=== PATIENT | male | born 1940 | race Caucasian/White ===

== ENCOUNTER 2024-05-28 12:15 | Inpatient (IN) | payer OTHER ==
[~2024-05-28] VITALS: Ht 170.2 cm; Wt 87.5 kg
[2024-05-28] MEDS ORDERED: METOPROLOL TARTRATE INJ 5 MG/5 ML AMPUL ONE (12:49)
[2024-05-28] MEDS ORDERED: ONDANSETRON HCL/PF 4 MG/2 ML VIAL ONE ×2 (12:50→19:18)
[2024-05-28] MEDS: METOPROLOL TARTRATE INJ 5 MG/5 ML AMPUL IV ONE (13:02)
[2024-05-28] MEDS: ONDANSETRON HCL/PF - ER 4 MG/2 ML VIAL IV ONE (13:05)
[2024-05-28 13:13] LABS: BASOPHILS % (AUTO) 0.1 % (0.0-2.0); EOSINOPHILS % (AUTO) 0.1 % (0.0-6.0); HEMATOCRIT 53 % (39-51); HEMOGLOBIN 18.1 g/dL (13.5-17.5); LYMPHOCYTES # (AUTO) 1.6 K/uL (0.8-4.8); LYMPHOCYTES % (AUTO) 9.3 % (20.0-44.0); MEAN CORPUSCULAR HEMOGLOBIN 27 PG (26.0-33.0); MEAN CORPUSCULAR HGB CONC 34 g/dl (31.0-36.0); MEAN CORPUSCULAR VOLUME 81 fL (80-96); MONOCYTES # (AUTO) 1.6 K/uL (0.1-1.30); MONOCYTES % (AUTO) 9.6 % (2.0-12.0); NEUTROPHILS # (AUTO) 13.5 K/uL (1.8-8.9); NEUTROPHILS % (AUTO) 80.9 % (43.0-81.0); PLATELET COUNT (AUTO) 257 K/uL (150-450); RED BLOOD CELL COUNT(AUTO) 6.62 MIL/uL (4.5-6.0); RED CELL DISTRIBUTION WIDTH 13.9 % (11.5-15.0); WHITE BLOOD COUNT (AUTO) 16.7 K/uL (4.3-11.0)
[2024-05-28] MEDS: METOPROLOL SUCCINATE 50 MG TAB.SR.24H PO SCH (13:30)
[2024-05-28 13:35] LABS: CALCIUM, SERUM 9.6 mg/dL (8.5-10.1); CARBON DIOXIDE 24 mmol/L (21-32); CHLORIDE 97 mmol/L (98-107); CREATININE 1.3 mg/dL (0.6-1.3); GLUCOSE 153 mg/dL (74-106); NT-PRO BNP 1115 pg/mL (0-125); POTASSIUM 4.1 mmol/L (3.5-5.1); SODIUM SERUM 134 mmol/L (136-145); UREA NITROGEN, BLOOD 25 mg/dL (7-18)
[2024-05-28] MEDS ORDERED: METOCLOPRAMIDE HCL 10 MG/2 ML VIAL ONE (13:54)
[2024-05-28] MEDS: METOCLOPRAMIDE HCL 10 MG/2 ML VIAL IV ONE (14:03)
[2024-05-28] MEDS ORDERED: DILTIAZEM HCL 25 MG IV ONE (14:23)
[2024-05-28] MEDS: DILTIAZEM HCL 50 MG IV IV ONE (14:30)
[2024-05-28] MEDS: IV NS 0.9% 1,000 ML BAG IV ONE (14:30)
[2024-05-28] MEDS: DILTIAZEM HCL IV 125 MG in IV NS 0.9% 100 ML IV PRN (15:03)
[2024-05-28 15:07] LABS: ALBUMIN 3.6 g/dL (3.4-5.0); BILIRUBIN,DIRECT 0.2 mg/dL (0.0-0.2); TOTAL PROTEIN, SERUM 7.1 g/dL (6.4-8.2)
[2024-05-28] MEDS ORDERED: MAG HYDROX/AL HYDROX/SIMETH 30 ML UDC ONE (15:33)
[2024-05-28] MEDS: MAG HYDROX/AL HYDROX/SIMETH 30 ML UDC PO ONE (15:36)
[2024-05-28] MEDS: HYDROMORPHONE INJ 2 MG/ML DISP.SYRIN IV ONE ×2 (19:30→22:46)
[2024-05-28] MEDS: ONDANSETRON HCL/PF 4 MG/2 ML VIAL IV ONE (19:32)
[2024-05-28] MEDS: IV NS 0.9% 500 ML BAG IV ONE (19:33)
[2024-05-28] MEDS ORDERED: HYDROMORPHONE 1 MG/1 ML DISP.SYRIN ONE ×2 (19:40→22:43)
[2024-05-28] MEDS: PANTOPRAZOLE 80 MG in IV NS 0.9% 500 ML IV ONE (19:58)
[2024-05-28 20:13] LABS: BASOPHILS % (AUTO) 0.1 % (0.0-2.0); HEMATOCRIT 49 % (39-51); HEMOGLOBIN 17.1 g/dL (13.5-17.5); LYMPHOCYTES # (AUTO) 1.4 K/uL (0.8-4.8); MEAN CORPUSCULAR HEMOGLOBIN 28 PG (26.0-33.0); MEAN CORPUSCULAR HGB CONC 35 g/dl (31.0-36.0); MEAN CORPUSCULAR VOLUME 79 fL (80-96); MONOCYTES # (AUTO) 1.8 K/uL (0.1-1.30); MONOCYTES % (AUTO) 11.4 % (2.0-12.0); NEUTROPHILS # (AUTO) 12.8 K/uL (1.8-8.9); NEUTROPHILS % (AUTO) 79.5 % (43.0-81.0); PLATELET COUNT (AUTO) 270 K/uL (150-450); RED CELL DISTRIBUTION WIDTH 13.6 % (11.5-15.0); WHITE BLOOD COUNT (AUTO) 16.1 K/uL (4.3-11.0)
[2024-05-28] MEDS ORDERED: AMIODARONE 150 MG/3 ML VIAL IV ONE (21:16)
[2024-05-28] MEDS: AMIODARONE 150 MG/3 ML VIAL IV ONE (21:22)
[2024-05-28] MEDS ORDERED: PIPERACI/TAZO 3.375GM/D5W 50ML PB IV ONE (22:43)
[2024-05-28] MEDS: ONDANSETRON HCL/PF 4 MG/2 ML VIAL IVP ONE (22:46)
[2024-05-28] MEDS: PIPERACILLIN /TAZOBACTAM 3.375 G in IV D5W 50 ML IV ONE (22:46)
[2024-05-28] MEDS ORDERED: ONDANSETRON HCL/PF 4 MG/2 ML VIAL IVP PRN (23:00)
[2024-05-28] MEDS ORDERED: MAGNESIUM HYDROXIDE 30 ML UDC PO PRN (23:00)
[2024-05-28] MEDS ORDERED: Z GUARD REMEDY 4 OZ OINT TP PRN (23:00)
[2024-05-28] MEDS ORDERED: ACETAMINOPHEN 325 MG TABLET PO PRN (23:00)
[2024-05-28] MEDS ORDERED: MAG HYDROX/AL HYDROX/SIMETH 30 ML UDC PO PRN (23:00)
[2024-05-29] VITALS: BP 114/70; TEMP 98.4; O2SAT 89
[2024-05-29] MEDS: AMIODARONE 150 MG/3 ML VIAL IV ONE (01:22)
[2024-05-29] MEDS: AMIODARONE 450 MG in IV D5W 250 ML IV PRN (01:30)
[2024-05-29 04:00] VITALS: BP 121/70; TEMP 98; O2SAT 89
[2024-05-29] MEDS ORDERED: PIPERACI/TAZO 3.375GM/D5W 50ML PB IV ONE (05:26)
[2024-05-29] MEDS: PIPERACILLIN /TAZOBACTAM 3.375 G in IV D5W 50 ML IV SCH (05:29)
[2024-05-29] MEDS: METOCLOPRAMIDE HCL 10 MG/2 ML VIAL IV SCH (05:29)
[2024-05-29] MEDS: IV NS 0.9% 1,000 ML IV PRN ×2 (05:36→16:05)
[2024-05-29 08:00] VITALS: BP 123/87; TEMP 99.3; O2SAT 97
[2024-05-29 08:46] LABS: BASOPHILS % (AUTO) 0.2 % (0.0-2.0); HEMATOCRIT 48 % (39-51); HEMOGLOBIN 16.4 g/dL (13.5-17.5); LYMPHOCYTES # (AUTO) 1.1 K/uL (0.8-4.8); LYMPHOCYTES % (AUTO) 15.4 % (20.0-44.0); MEAN CORPUSCULAR HEMOGLOBIN 28 PG (26.0-33.0); MEAN CORPUSCULAR HGB CONC 34 g/dl (31.0-36.0); MEAN CORPUSCULAR VOLUME 81 fL (80-96); MONOCYTES # (AUTO) 0.5 K/uL (0.1-1.30); NEUTROPHILS # (AUTO) 5.4 K/uL (1.8-8.9); NEUTROPHILS % (AUTO) 77.4 % (43.0-81.0); PLATELET COUNT (AUTO) 187 K/uL (150-450); RED BLOOD CELL COUNT(AUTO) 5.95 MIL/uL (4.5-6.0); RED CELL DISTRIBUTION WIDTH 13.9 % (11.5-15.0)
[2024-05-29] MEDS: PANTOPRAZOLE 40 MG VIAL IV SCH (08:48)
[2024-05-29] MEDS ORDERED: VIT1CAPS44 PO (11:49)
[2024-05-29] MEDS ORDERED: FINA5TAB11 PO (11:49)
[2024-05-29] MEDS ORDERED: METO25TA6 PO (11:49)
[2024-05-29] MEDS ORDERED: ESCI10TA PO (11:49)
[2024-05-29] MEDS ORDERED: METO25TA20 PO (11:49)
[2024-05-29] MEDS ORDERED: TAMS-12 PO (11:49)
[2024-05-29] MEDS ORDERED: DILT30TA2 PO (11:49)
[2024-05-29] MEDS ORDERED: DOCU-275 PO (11:49)
[2024-05-29] MEDS ORDERED: DABI110C PO (11:49)
[2024-05-29] MEDS: DIGOXIN INJ 0.5 MG/2 ML AMPUL IV SCH (11:50)
[2024-05-29 12:00] VITALS: BP 118/77; TEMP 99.1; O2SAT 95
[2024-05-29 12:04] LABS: ALBUMIN 2.7 g/dL (3.4-5.0); BILIRUBIN,TOTAL 1.2 mg/dL (0.2-1.0); CREATININE 1.3 mg/dL (0.6-1.3); MAGNESIUM 2.2 mg/dL (1.8-2.4); PHOSPHORUS 2.6 mg/dL (2.5-4.9); TOTAL PROTEIN, SERUM 5.7 g/dL (6.4-8.2)
[2024-05-29] MEDS ORDERED: DIGO250A9 IV (12:06)
[2024-05-29] MEDS ORDERED: PANT40VI IV (12:06)
[2024-05-29] MEDS ORDERED: METO5VIA6 IV (12:06)
[2024-05-29] MEDS ORDERED: AMIO50VI XX (12:06)
[2024-05-29] MEDS ORDERED: PIPE3.379 IV (12:06)
[2024-05-29] MEDS ORDERED: ONDA4VIA23 IVP (12:06)
[2024-05-29 16:00] VITALS: BP 94/67; TEMP 97.9; O2SAT 98
[2024-05-29 20:00] VITALS: BP 119/58; TEMP 98.4; O2SAT 94
[2024-05-30] VITALS: BP 100/57; TEMP 98.2; O2SAT 94
[2024-05-30] MEDS: DIGOXIN INJ 0.5 MG/2 ML AMPUL ONE (01:24)
[2024-05-30 04:00] VITALS: BP 110/55; TEMP 98.3; O2SAT 94
[2024-05-30 08:00] VITALS: BP 108/66; TEMP 97.9; O2SAT 94
[2024-05-30] MEDS: IV NS 0.9% 1,000 ML IV PRN (09:44)
[2024-05-30 11:08] LABS: BASOPHILS % (AUTO) 0.2 % (0.0-2.0); EOSINOPHILS % (AUTO) 0.9 % (0.0-6.0); HEMATOCRIT 37 % (39-51); HEMOGLOBIN 12.7 g/dL (13.5-17.5); LYMPHOCYTES # (AUTO) 0.6 K/uL (0.8-4.8); LYMPHOCYTES % (AUTO) 16.3 % (20.0-44.0); MEAN CORPUSCULAR HEMOGLOBIN 27 PG (26.0-33.0); MEAN CORPUSCULAR HGB CONC 34 g/dl (31.0-36.0); MEAN CORPUSCULAR VOLUME 79 fL (80-96); MONOCYTES # (AUTO) 0.6 K/uL (0.1-1.30); MONOCYTES % (AUTO) 16.3 % (2.0-12.0); NEUTROPHILS # (AUTO) 2.5 K/uL (1.8-8.9); NEUTROPHILS % (AUTO) 66.3 % (43.0-81.0); PLATELET COUNT (AUTO) 150 K/uL (150-450); RED BLOOD CELL COUNT(AUTO) 4.71 MIL/uL (4.5-6.0); RED CELL DISTRIBUTION WIDTH 13.4 % (11.5-15.0); WHITE BLOOD COUNT (AUTO) 3.7 K/uL (4.3-11.0)
[2024-05-30 11:23] LABS: ALBUMIN 2.3 g/dL (3.4-5.0); BILIRUBIN,TOTAL 0.8 mg/dL (0.2-1.0); CALCIUM, SERUM 7.9 mg/dL (8.5-10.1); MAGNESIUM 2.4 mg/dL (1.8-2.4); PHOSPHORUS 2.2 mg/dL (2.5-4.9); POTASSIUM 3.7 mmol/L (3.5-5.1); TOTAL PROTEIN, SERUM 5.2 g/dL (6.4-8.2)
[2024-05-30 12:00] VITALS: BP 112/57; TEMP 97.5; O2SAT 94
[2024-05-30] MEDS: IV D5/ 0.9% NACL 1,000 ML IV SCH (12:21)
[2024-05-30] MEDS ORDERED: DIATR MEGLU/DIATRIZOATE SODIUM 120 ML BOTTLE (GASTROGRAPHIN) ONE (12:49)
[2024-05-30 16:00] VITALS: BP 121/75; TEMP 97.5; O2SAT 94
[2024-05-30] MEDS: Sodium Phosphate 15 MMOL in IV NS 0.9% 245 ML IV SCH (17:30)
[2024-05-30 20:00] VITALS: BP 104/76; TEMP 97.5; O2SAT 97
[2024-05-31] VITALS: BP 122/75; TEMP 97.5; O2SAT 96
[2024-05-31 04:00] VITALS: BP 128/63; TEMP 98.4; O2SAT 96
[2024-05-31 07:34] LABS: CALCIUM, SERUM 7.7 mg/dL (8.5-10.1); CREATININE 1.1 mg/dL (0.6-1.3); POTASSIUM 3.5 mmol/L (3.5-5.1)
[2024-05-31 08:03] LABS: BASOPHILS % (AUTO) 0.1 % (0.0-2.0); EOSINOPHILS # (AUTO) 0.1 K/uL (0.0-0.7); EOSINOPHILS % (AUTO) 2.8 % (0.0-6.0); HEMATOCRIT 37 % (39-51); LYMPHOCYTES # (AUTO) 0.6 K/uL (0.8-4.8); LYMPHOCYTES % (AUTO) 12.7 % (20.0-44.0); MEAN CORPUSCULAR HEMOGLOBIN 28 PG (26.0-33.0); MEAN CORPUSCULAR HGB CONC 35 g/dl (31.0-36.0); MEAN CORPUSCULAR VOLUME 80 fL (80-96); MONOCYTES # (AUTO) 0.8 K/uL (0.1-1.30); MONOCYTES % (AUTO) 16.5 % (2.0-12.0); NEUTROPHILS # (AUTO) 3.2 K/uL (1.8-8.9); NEUTROPHILS % (AUTO) 67.9 % (43.0-81.0); PLATELET COUNT (AUTO) 169 K/uL (150-450); RED BLOOD CELL COUNT(AUTO) 4.64 MIL/uL (4.5-6.0); RED CELL DISTRIBUTION WIDTH 13.5 % (11.5-15.0); WHITE BLOOD COUNT (AUTO) 4.7 K/uL (4.3-11.0)
[2024-05-31 08:10] VITALS: BP 133/55; TEMP 98.6; O2SAT 98
[2024-05-31] MEDS ORDERED: IV D5/ 0.9% NACL 1,000 ML IV PRN (11:00)
[2024-05-31 12:10] VITALS: BP 145/64; TEMP 98.2; O2SAT 97
[2024-05-31] MEDS: diphenhydrAMINE HCL 50 MG/ML VIAL IV ONE (15:51)
[2024-05-31 16:03] VITALS: BP 130/77; TEMP 99.1; O2SAT 97
== END 2024-05-31 19:55 | disposition short-term general hospital (02) | DRG 378 ==
LOC: ER 12:18 → TELE1 23:45 → TELE-TD 23:49 → TELE1 05-30 10:30
PROVIDERS: ADMIT Nurse Practitioner Acute Care; ATTEND Nurse Practitioner Family
DX: K92.2 Gastrointestinal hemorrhage, unspecified (principal); K56.609 Unspecified intestinal obstruction, unspecified as to partial versus complete obstruction; I48.91 Unspecified atrial fibrillation; Z20.822 Contact with and (suspected) exposure to COVID-19; Z79.899 Other long term (current) drug therapy; Z87.19 Personal history of other diseases of the digestive system; R79.89 Other specified abnormal findings of blood chemistry; K31.89 Other diseases of stomach and duodenum; Z96.641 Presence of right artificial hip joint; Z68.30 Body mass index [BMI] 30.0-30.9, adult; E66.9 Obesity, unspecified; Z98.890 Other specified postprocedural states
CPT/HCPCS: 36415; 71045-TC; 74018; 74250-TC; 80048-TC; 80053-TC; 80076-TC; 83690-TC; 83735-TC; 83880; 84100-TC; 84484-TC; 85025-TC; 87040-TC; 93307-TC; A4223; A9563; G0378; J0282; J1160; J1171; J1200; J2405; J2470; J2543; J2765; J3490; J7030; J7040; J7042; J7050; J7060; Q9963